=== PATIENT | female | born 1965 | race African-American/Black ===

== ENCOUNTER 2016-12-23 18:39 | Inpatient (IN) | payer BC, OTHER ==
[~2016-12-23] VITALS: Ht 160 cm; Wt 88.0 kg
[~2016-12-23 18:39] MED LIST: ESTR1.25 PO
[2016-12-23] MEDS ORDERED: IV NORMAL SALINE 1000ML BAG 1,000 ML IV SCH (19:00)
[2016-12-23] MEDS ORDERED: ASPIRIN CHEWABLE 81 MG TABLET. PO ONE (19:00)
[2016-12-23 19:33] LABS: BASO % 1 % (0-3); EOS % 2 % (0-3); HEMATOCRIT 37.2 % (36.0-47.0); LYMPH # 2.8 x10^3/uL (1.0-4.8); LYMPH % 34 % (24-48); MEAN CORPUSCULAR HEMOGLOBIN 27 pg (25-35); MEAN CORPUSCULAR HGB CONC 32 g/dL (31-37); MEAN CORPUSCULAR VOLUME 84 fL (79-100); MONO % 7 % (0-9); NEUT % 56 % (31-73); PLATELET COUNT 318 x10^3/uL (140-400); RED BLOOD COUNT 4.41 x10^6/uL (3.50-5.40); RED CELL DISTRIBUTION WIDTH 13.6 % (11.5-14.5); WHITE BLOOD COUNT 8.3 x10^3/uL (4.0-11.0)
[2016-12-23 19:45] LABS: CALCIUM 9.3 mg/dL (8.5-10.1); CREATININE 1.1 mg/dL (0.6-1.0); GFR 63.1; POTASSIUM 3.5 mmol/L (3.5-5.1)
[2016-12-23] MEDS ORDERED: CEPH-264 PO (19:49)
--- NOTE | 2016-12-23 19:50 | PHYS DOC ---
Past Medical History Past Medical History: Hypertension Past Surgical History: Hysterectomy Alcohol Use: None Drug Use: None Adult General Chief Complaint Chief Complaint: CHEST PAIN HPI HPI 51-year-old female with past history of tobacco abuse hypertension and high cholesterol no diabetes or family history of heart problems now presents to the emergency department complaining of intermittent chest pain over the last several days. The exertional chest pain associated with shortness of breath and diaphoresis. No nausea or vomiting. No productive cough or fever. Denies pleuritic pain. Pain is not worse with movement. 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 Review of Systems Review of Systems Constitutional: Denies fever or chills [] Eyes: Denies change in visual acuity, redness, or eye pain [] HENT: Denies nasal congestion or sore throat [] Respiratory: Denies cough or shortness of breath [] Cardiovascular: No additional information not addressed in HPI [] GI: Denies abdominal pain, nausea, vomiting, bloody stools or diarrhea [] : Denies dysuria or hematuria [] Musculoskeletal: Denies back pain or joint pain [] Integument: Denies rash or skin lesions [] Neurologic: Denies headache, focal weakness or sensory changes [] Endocrine: Denies polyuria or polydipsia [] Current Medications Current Medications Current Medications Medications (Trade) Dose Ordered Sig/Van Start Time Stop Time Status Last Admin Dose Admin Aspirin (Children'S Aspirin) 324 mg 1X ONCE 12/23/16 19:00 12/23/16 19:01 DC 12/23/16 19:15 324 MG Sodium Chloride 1,000 ml @ 100 mls/hr Q10H 12/23/16 19:00 12/24/16 04:59 12/23/16 19:30 100 MLS/HR Allergies Allergies Allergies Coded Allergies Type Severity Reaction Last Updated Verified No Known Drug Allergies 01/08/14 No Physical Exam Physical Exam Well appearing female no acute distress mild chest wall tenderness but clear lungs and regular rate and rhythm Constitutional: Well developed, well nourished, no acute distress, non-toxic appearance. [] HENT: Normocephalic, atraumatic, bilateral external ears normal, oropharynx moist, no oral exudates, nose normal. [] Eyes: PERRLA, EOMI, conjunctiva normal, no discharge. [] Neck: Normal range of motion, no tenderness, supple, no stridor. [] Cardiovascular:Heart rate regular rhythm, no murmur [] Lungs & Thorax: Bilateral breath sounds clear to auscultation [] Abdomen: Bowel sounds normal, soft, no tenderness, no masses, no pulsatile masses. [] Skin: Warm, dry, no erythema, no rash. [] Back: No tenderness, no CVA tenderness. [] Extremities: No tenderness, no cyanosis, no clubbing, ROM intact, no edema. [] Neurologic: Alert and oriented X 3, normal motor function, normal sensory function, no focal deficits noted. [] Psychologic: Affect normal, judgement normal, mood normal. [] Current Patient Data Vital Signs Vital Signs Date Time Temp Pulse Resp B/P (MAP) Pulse Ox O2 Delivery O2 Flow Rate FiO2 12/23/16 18:53 98.4 98 18 133/81 (98) 98 Room Air 98.4 Lab Values Laboratory Tests Test 12/23/16 19:20 White Blood Count 8.3 x10^3/uL (4.0-11.0) Red Blood Count 4.41 x10^6/uL (3.50-5.40) Hemoglobin 12.0 g/dL (12.0-15.5) Hematocrit 37.2 % (36.0-47.0) Mean Corpuscular Volume 84 fL (79-100) Mean Corpuscular Hemoglobin 27 pg (25-35) Mean Corpuscular Hemoglobin Concent 32 g/dL (31-37) Red Cell Distribution Width 13.6 % (11.5-14.5) Platelet Count 318 x10^3/uL (140-400) Neutrophils (%) (Auto) 56 % (31-73) Lymphocytes (%) (Auto) 34 % (24-48) Monocytes (%) (Auto) 7 % (0-9) Eosinophils (%) (Auto) 2 % (0-3) Basophils (%) (Auto) 1 % (0-3) Neutrophils # (Auto) 4.7 x10^3uL (1.8-7.7) Lymphocytes # (Auto) 2.8 x10^3/uL (1.0-4.8) Monocytes # (Auto) 0.6 x10^3/uL (0.0-1.1) Eosinophils # (Auto) 0.2 x10^3/uL (0.0-0.7) Basophils # (Auto) 0.0 x10^3/uL (0.0-0.2) Sodium Level 142 mmol/L (136-145) Potassium Level 3.5 mmol/L (3.5-5.1) Chloride Level 106 mmol/L (98-107) Carbon Dioxide Level 24 mmol/L (21-32) Anion Gap 12 (6-14) Blood Urea Nitrogen 10 mg/dL (7-20) Creatinine 1.1 mg/dL (0.6-1.0) H Estimated GFR (Cockcroft-Gault) 63.1 BUN/Creatinine Ratio 9 (6-20) Glucose Level 107 mg/dL (70-99) H Calcium Level 9.3 mg/dL (8.5-10.1) Total Bilirubin 0.4 mg/dL (0.2-1.0) Aspartate Amino Transferase (AST) 19 U/L (15-37) Alanine Aminotransferase (ALT) 19 U/L (14-59) Alkaline Phosphatase 89 U/L (46-116) Troponin I Quantitative < 0.017 ng/mL (0.000-0.055) Total Protein 8.4 g/dL (6.4-8.2) H Albumin 3.7 g/dL (3.4-5.0) Albumin/Globulin Ratio 0.8 (1.0-1.7) L Laboratory Tests 12/23/16 19:20 Laboratory Tests 12/23/16 19:20 EKG EKG EKG with normal sinus rhythm at 91 bpm left axis deviation. Left anterior hemiblock. No STEMI [] Radiology/Procedures Radiology/Procedures Chest x-ray no acute disease interpreted by me [] Course & Med Decision Making Course & Med Decision Making Pertinent Labs and Imaging studies reviewed. (See chart for details) Enzymes and symptoms consistent with chest pain of possible cardiac etiology in a patient with multiple cardiac risk factors. EKG and troponin unremarkable. Chest x-ray negative interpreted by me. Labs benign. Case discussed with Dr. galina Rodriguez hospitalist on-call was aware of history and findings and agrees with inpatient admission to his service for full cardiac workup. [] Dragon Disclaimer Dragon Disclaimer This electronic medical record was generated, in whole or in part, using a voice recognition dictation system. Departure Departure Impression: Primary Impression: Chest pain Disposition: 09 ADMITTED INPATIENT Admitting Physician: Navarro Masterson Condition: STABLE Referrals: JAMARCUS REYES MD (PCP) CECILLE QUEZADA MD Dec 23, 2016 19:50
[2016-12-23 19:51] LABS: ALBUMIN 3.7 g/dL (3.4-5.0); ALBUMIN/GLOBULIN RATIO 0.8 (1.0-1.7); TOTAL BILIRUBIN 0.4 mg/dL (0.2-1.0); TOTAL PROTEIN 8.4 g/dL (6.4-8.2)
--- NOTE | 2016-12-23 20:56 | PDOC1 ---
History and Physical History of Present Illness History of Present Illness Date of exam 12/23/2016 Chief complaint: Chest pain History of present illness: A 51-year-old -[place] female patient presented to the ER with complaints of chest pain located at the center of the chest sometimes radiated to right upper extremity and neck, symptoms are persistent for the last 2 weeks sometimes worse with the exertion especially when patient is taking stairs. She did have a stress test last year [facility] which was negative, however could not able to verify the report. She has been following with primary care doctor however she could not able to diagnose her condition. Patient denies any palpitations or syncope or lower extremity swellings. Past medical history hypertension, anxiety ,borderline diabetes mellitus, Social history: No smoking no, no drug abuse next Family history: Mother has heart disease. Current Problem List Problem List Problems Medical Problems: (1) Chest pain Status: Acute (2) Confusion Status: Acute (3) Dementia Status: Acute (4) UTI (urinary tract infection) Status: Acute Current Medications Current Medications Current Medications Medications (Trade) Dose Ordered Sig/Van Start Time Stop Time Status Last Admin Dose Admin Aspirin (Children'S Aspirin) 324 mg 1X ONCE 12/23/16 19:00 12/23/16 19:01 DC 12/23/16 19:15 324 MG Sodium Chloride 1,000 ml @ 100 mls/hr Q10H 12/23/16 19:00 12/24/16 04:59 12/23/16 19:30 100 MLS/HR Allergies Allergies Allergies Coded Allergies Type Severity Reaction Last Updated Verified No Known Drug Allergies 01/08/14 No ROS Review of System CONSTITUTIONAL: No fever or chills EYES: No recent changes SKIN: No rash or itching CARDIOVASCULAR: chest pain, no syncope, palpitations, or edema RESPIRATORY: No SOB or cough GASTROINTESTINAL: No nausea, vomiting or abdominal pain NEUROLOGICAL: No headaches or weakness ENDOCRINE: No cold or heat intolerance GENITOURINARY: No urgency or frequency of urination MUSCULOSKELETAL: No back pain or joint pain LYMPHATICS: No enlarged lymph nodes PSYCHIATRIC: No anxiety or depression Physical Exam Physical Exam GEN.: No apparent distress. Alert and oriented. HEENT: Head is normocephalic, atraumatic NECK: Supple. no jvd LUNGS: Clear to auscultation. HEART: RRR, S1, S2 present. Peripheral pulses intact ABDOMEN: Soft, nontender. Positive bowel sounds. EXTREMITIES: Without any cyanosis. NEUROLOGIC: Normal speech, normal tone PSYCHIATRIC: Normal affect, normal mood. SKIN: No ulcerations Vitals Vitals Vital Signs Date Time Temp Pulse Resp B/P (MAP) Pulse Ox O2 Delivery O2 Flow Rate FiO2 12/23/16 18:53 98.4 98 18 133/81 (98) 98 Room Air 98.4 Labs Labs Laboratory Tests Test 12/23/16 19:20 White Blood Count 8.3 x10^3/uL (4.0-11.0) Red Blood Count 4.41 x10^6/uL (3.50-5.40) Hemoglobin 12.0 g/dL (12.0-15.5) Hematocrit 37.2 % (36.0-47.0) Mean Corpuscular Volume 84 fL (79-100) Mean Corpuscular Hemoglobin 27 pg (25-35) Mean Corpuscular Hemoglobin Concent 32 g/dL (31-37) Red Cell Distribution Width 13.6 % (11.5-14.5) Platelet Count 318 x10^3/uL (140-400) Neutrophils (%) (Auto) 56 % (31-73) Lymphocytes (%) (Auto) 34 % (24-48) Monocytes (%) (Auto) 7 % (0-9) Eosinophils (%) (Auto) 2 % (0-3) Basophils (%) (Auto) 1 % (0-3) Neutrophils # (Auto) 4.7 x10^3uL (1.8-7.7) Lymphocytes # (Auto) 2.8 x10^3/uL (1.0-4.8) Monocytes # (Auto) 0.6 x10^3/uL (0.0-1.1) Eosinophils # (Auto) 0.2 x10^3/uL (0.0-0.7) Basophils # (Auto) 0.0 x10^3/uL (0.0-0.2) Sodium Level 142 mmol/L (136-145) Potassium Level 3.5 mmol/L (3.5-5.1) Chloride Level 106 mmol/L (98-107) Carbon Dioxide Level 24 mmol/L (21-32) Anion Gap 12 (6-14) Blood Urea Nitrogen 10 mg/dL (7-20) Creatinine 1.1 mg/dL (0.6-1.0) Estimated GFR (Cockcroft-Gault) 63.1 BUN/Creatinine Ratio 9 (6-20) Glucose Level 107 mg/dL (70-99) Calcium Level 9.3 mg/dL (8.5-10.1) Total Bilirubin 0.4 mg/dL (0.2-1.0) Aspartate Amino Transf (AST/SGOT) 19 U/L (15-37) Alanine Aminotransferase (ALT/SGPT) 19 U/L (14-59) Alkaline Phosphatase 89 U/L (46-116) Troponin I Quantitative < 0.017 ng/mL (0.000-0.055) Total Protein 8.4 g/dL (6.4-8.2) Albumin 3.7 g/dL (3.4-5.0) Albumin/Globulin Ratio 0.8 (1.0-1.7) Laboratory Tests Test 12/23/16 19:20 White Blood Count 8.3 x10^3/uL (4.0-11.0) Red Blood Count 4.41 x10^6/uL (3.50-5.40) Hemoglobin 12.0 g/dL (12.0-15.5) Hematocrit 37.2 % (36.0-47.0) Mean Corpuscular Volume 84 fL (79-100) Mean Corpuscular Hemoglobin 27 pg (25-35) Mean Corpuscular Hemoglobin Concent 32 g/dL (31-37) Red Cell Distribution Width 13.6 % (11.5-14.5) Platelet Count 318 x10^3/uL (140-400) Neutrophils (%) (Auto) 56 % (31-73) Lymphocytes (%) (Auto) 34 % (24-48) Monocytes (%) (Auto) 7 % (0-9) Eosinophils (%) (Auto) 2 % (0-3) Basophils (%) (Auto) 1 % (0-3) Neutrophils # (Auto) 4.7 x10^3uL (1.8-7.7) Lymphocytes # (Auto) 2.8 x10^3/uL (1.0-4.8) Monocytes # (Auto) 0.6 x10^3/uL (0.0-1.1) Eosinophils # (Auto) 0.2 x10^3/uL (0.0-0.7) Basophils # (Auto) 0.0 x10^3/uL (0.0-0.2) Sodium Level 142 mmol/L (136-145) Potassium Level 3.5 mmol/L (3.5-5.1) Chloride Level 106 mmol/L (98-107) Carbon Dioxide Level 24 mmol/L (21-32) Anion Gap 12 (6-14) Blood Urea Nitrogen 10 mg/dL (7-20) Creatinine 1.1 mg/dL (0.6-1.0) Estimated GFR (Cockcroft-Gault) 63.1 BUN/Creatinine Ratio 9 (6-20) Glucose Level 107 mg/dL (70-99) Calcium Level 9.3 mg/dL (8.5-10.1) Total Bilirubin 0.4 mg/dL (0.2-1.0) Aspartate Amino Transf (AST/SGOT) 19 U/L (15-37) Alanine Aminotransferase (ALT/SGPT) 19 U/L (14-59) Alkaline Phosphatase 89 U/L (46-116) Troponin I Quantitative < 0.017 ng/mL (0.000-0.055) Total Protein 8.4 g/dL (6.4-8.2) Albumin 3.7 g/dL (3.4-5.0) Albumin/Globulin Ratio 0.8 (1.0-1.7) VTE Prophylaxis Ordered VTE Prophylaxis Devices: Yes VTE Pharmacological Prophylaxi: Yes Assessment/Plan Assessment/Plan Chest pain: Possible differentials musculoskeletal, coronary artery related, anxiety. EKG reviewed compared with old EKG no acute ST-T wave changes noted, I' ll get an echocardiogram, consult cardiology, order 2 more sets of troponins, patient could not able to verify her home medications. Hypertension: Verify home medications with pharmacy and resume , intravenous hydralazine hydralazine as needed, Obesity: Anxiety: PRN Xana. MIYA SWEET MD Dec 23, 2016 20:55
[2016-12-23] MEDS ORDERED: ALBUTEROL SULFATE 2.5 MG/3 ML NEBU. NEB PRN (21:15)
[2016-12-23] MEDS ORDERED: ACETAMINOPHEN 325 MG TABLET. PO PRN (21:15)
[2016-12-23] MEDS ORDERED: ONDANSETRON PF 4 MG/2 ML VIAL. IV PRN (21:15)
[2016-12-23] MEDS ORDERED: hydrALAZINE 20 MG/ML VIAL. IVP PRN (21:15)
[2016-12-23] MEDS ORDERED: HYDROcodone/APAP 5/325MG 1 TAB TABLET PO PRN (21:15)
[2016-12-23 23:00] VITALS: BP 105/58
[2016-12-24] MEDS ORDERED: ASPI-482 PO (00:24)
[2016-12-24] MEDS ORDERED: AMIT25TA PO (00:24)
[2016-12-24] MEDS ORDERED: LOSA100T6 PO (00:24)
[2016-12-24] MEDS ORDERED: SIMV20TA PO (00:24)
[2016-12-24] MEDS ORDERED: AMLO5TAB2 PO (00:24)
[2016-12-24] MEDS ORDERED: CHOL500016 PO (00:24)
[2016-12-24] MEDS ORDERED: ALPR0.5T PO (00:24)
[2016-12-24] MEDS ORDERED: DULO30CA2 PO (00:24)
[2016-12-24] MEDS ORDERED: VALR1TAB PO (00:24)
[2016-12-24] MEDS ORDERED: ALPRAZolam 0.5 MG TABLET PO PRN (00:30)
[2016-12-24 03:00] VITALS: BP 110/63
[2016-12-24 07:00] VITALS: BP 106/57
[2016-12-24 07:11] LABS: BASO % 1 % (0-3); EOS % 3 % (0-3); HEMATOCRIT 32.2 % (36.0-47.0); HEMOGLOBIN 10.5 g/dL (12.0-15.5); LYMPH % 35 % (24-48); MEAN CORPUSCULAR HEMOGLOBIN 27 pg (25-35); MEAN CORPUSCULAR HGB CONC 33 g/dL (31-37); MEAN CORPUSCULAR VOLUME 84 fL (79-100); MONO % 10 % (0-9); NEUT % 52 % (31-73); PLATELET COUNT 278 x10^3/uL (140-400); RED BLOOD COUNT 3.82 x10^6/uL (3.50-5.40); RED CELL DISTRIBUTION WIDTH 13.6 % (11.5-14.5); WHITE BLOOD COUNT 5.8 x10^3/uL (4.0-11.0)
[2016-12-24 07:32] LABS: CALCIUM 8.6 mg/dL (8.5-10.1); GFR 70.5; POTASSIUM 3.7 mmol/L (3.5-5.1)
--- NOTE | 2016-12-24 08:47 | RAD ---
EXAM: CHEST 1 VIEW History: Right-sided chest pain for one week COMPARISON: 07/28/2006 TECHNIQUE: Single portable radiograph of the chest FINDINGS: The cardiac silhouette is unremarkable. The lungs are clear bilaterally. The costophrenic sulci are clear and well demarcated. IMPRESSION: No radiographic evidence of an acute cardiopulmonary process.
[2016-12-24] MEDS ORDERED: ERGOCALCIFEROL (VITAMIN D2) 50,000 UNIT CAPSULE. PO SCH (09:00)
[2016-12-24] MEDS ORDERED: DULoxetine HCL 30 MG CAPSULE.DR PO SCH (09:00)
[2016-12-24] MEDS ORDERED: amLODIPine BESYLATE 5 MG TABLET PO SCH (09:00)
[2016-12-24] MEDS ORDERED: ASPIRIN ENTERIC COATED 81 MG TABLET.DR. PO SCH (09:00)
[2016-12-24] MEDS ORDERED: LOSARTAN POTASSIUM 50 MG TABLET. PO SCH (09:00)
--- NOTE | 2016-12-24 09:06 | PDOC2 ---
CARDIOLOGY CONSULT NOTE CHEIF COMPLAINT: Chest pain Problems: HPI: 51 y.o woman presenting to the hospital with chest pain Started after an argument with her . Pain was intermittent and then improved without any interventions. Reports similar pains last year and had a negative stress through [employer] Denies any current chest pain but has chronic exertional dyspnea related to obesity. No syncope, palpitations. In ER noted to have negative trop admitted for acs rule out. PMHX: HTN ANXIETY DEPRESSION DYSLIPIDEMIA SOCHX: +tobacco abuse. . FAMHX: +CAD CURRENT MEDS: Current Medications Medications (Trade) Dose Ordered Sig/Van Start Time Stop Time Status Last Admin Dose Admin Acetaminophen (Tylenol) 325 mg PRN Q6HRS PRN 12/23/16 21:15 Acetaminophen/ Hydrocodone Bitart (Lortab 5/325) 1 tab PRN Q6HRS PRN 12/23/16 21:15 12/23/16 23:11 1 TAB Albuterol Sulfate (Ventolin Neb Soln) 2.5 mg PRN Q4HRS PRN 12/23/16 21:15 Alprazolam (Xanax) 0.5 mg PRN DAILY PRN 12/24/16 00:30 Amitriptyline HCl (Elavil) 25 mg HS 12/24/16 21:00 Amlodipine Besylate (Norvasc) 5 mg DAILY 12/24/16 09:00 Aspirin (Children'S Aspirin) 324 mg 1X ONCE 12/23/16 19:00 12/23/16 19:01 DC 12/23/16 19:15 324 MG Aspirin (Ecotrin) 81 mg DAILY 12/24/16 09:00 Atorvastatin Calcium (Lipitor) 10 mg QHS 12/24/16 21:00 Duloxetine HCl (Cymbalta) 30 mg BID 12/24/16 09:00 Ergocalciferol (Vitamin D2) 50,000 unit WEEKLY 12/24/16 09:00 Hydralazine HCl (Apresoline) 10 mg PRN Q4HRS PRN 12/23/16 21:15 Losartan Potassium (Cozaar) 100 mg DAILY 12/24/16 09:00 Non-Formulary Medication 1 each HS 12/24/16 21:00 UNV Ondansetron HCl (Zofran) 4 mg PRN Q8HRS PRN 12/23/16 21:15 Sodium Chloride 1,000 ml @ 100 mls/hr Q10H 12/23/16 19:00 12/24/16 04:59 DC 12/23/16 19:30 100 MLS/HR ALLERGIES: Allergies Coded Allergies Type Severity Reaction Last Updated Verified No Known Drug Allergies 01/08/14 No ROS: 14 point system was reviewed and is negative other then described in HPI and past medical and surgical history. PHYSICAL EXAM: Vital Signs: Vital Signs Date Time Temp Pulse Resp B/P (MAP) Pulse Ox O2 Delivery O2 Flow Rate FiO2 12/24/16 07:50 99 Room Air 12/24/16 07:00 95.5 52 18 106/57 (73) 95.5 I & O Intake and Output 12/24/16 07:00 Intake Total 1180 ml Balance 1180 ml Intake Oral 280 ml IV Total 900 ml Physical Exam: GEN.: No apparent distress. Alert and oriented. HEENT: Head is normocephalic, atraumatic NECK: Supple. LUNGS: Clear to auscultation. HEART: RRR, S1, S2 present. Peripheral pulses intact ABDOMEN: Soft, nontender. Positive bowel sounds. EXTREMITIES: Without any cyanosis. NEUROLOGIC: Normal speech, normal tone PSYCHIATRIC: Normal affect, normal mood. SKIN: No ulcerations DIAGNOSTIC TESTING: EKG unremarkable CXR unremarkable CE neg x 2. Lab Laboratory Tests Test 12/23/16 19:20 12/24/16 06:40 White Blood Count 8.3 x10^3/uL (4.0-11.0) 5.8 x10^3/uL (4.0-11.0) Red Blood Count 4.41 x10^6/uL (3.50-5.40) 3.82 x10^6/uL (3.50-5.40) Hemoglobin 12.0 g/dL (12.0-15.5) 10.5 g/dL (12.0-15.5) L Hematocrit 37.2 % (36.0-47.0) 32.2 % (36.0-47.0) L Mean Corpuscular Volume 84 fL (79-100) 84 fL (79-100) Mean Corpuscular Hemoglobin 27 pg (25-35) 27 pg (25-35) Mean Corpuscular Hemoglobin Concent 32 g/dL (31-37) 33 g/dL (31-37) Red Cell Distribution Width 13.6 % (11.5-14.5) 13.6 % (11.5-14.5) Platelet Count 318 x10^3/uL (140-400) 278 x10^3/uL (140-400) Neutrophils (%) (Auto) 56 % (31-73) 52 % (31-73) Lymphocytes (%) (Auto) 34 % (24-48) 35 % (24-48) Monocytes (%) (Auto) 7 % (0-9) 10 % (0-9) H Eosinophils (%) (Auto) 2 % (0-3) 3 % (0-3) Basophils (%) (Auto) 1 % (0-3) 1 % (0-3) Neutrophils # (Auto) 4.7 x10^3uL (1.8-7.7) 3.0 x10^3uL (1.8-7.7) Lymphocytes # (Auto) 2.8 x10^3/uL (1.0-4.8) 2.0 x10^3/uL (1.0-4.8) Monocytes # (Auto) 0.6 x10^3/uL (0.0-1.1) 0.6 x10^3/uL (0.0-1.1) Eosinophils # (Auto) 0.2 x10^3/uL (0.0-0.7) 0.2 x10^3/uL (0.0-0.7) Basophils # (Auto) 0.0 x10^3/uL (0.0-0.2) 0.0 x10^3/uL (0.0-0.2) Sodium Level 142 mmol/L (136-145) 146 mmol/L (136-145) H Potassium Level 3.5 mmol/L (3.5-5.1) 3.7 mmol/L (3.5-5.1) Chloride Level 106 mmol/L (98-107) 112 mmol/L (98-107) H Carbon Dioxide Level 24 mmol/L (21-32) 24 mmol/L (21-32) Anion Gap 12 (6-14) 10 (6-14) Blood Urea Nitrogen 10 mg/dL (7-20) 11 mg/dL (7-20) Creatinine 1.1 mg/dL (0.6-1.0) H 1.0 mg/dL (0.6-1.0) Estimated GFR (Cockcroft-Gault) 63.1 70.5 BUN/Creatinine Ratio 9 (6-20) Glucose Level 107 mg/dL (70-99) H 115 mg/dL (70-99) H Calcium Level 9.3 mg/dL (8.5-10.1) 8.6 mg/dL (8.5-10.1) Total Bilirubin 0.4 mg/dL (0.2-1.0) Aspartate Amino Transf (AST/SGOT) 19 U/L (15-37) Alkaline Phosphatase 89 U/L (46-116) Total Protein 8.4 g/dL (6.4-8.2) H Albumin 3.7 g/dL (3.4-5.0) Albumin/Globulin Ratio 0.8 (1.0-1.7) L ASSESSMENT: 1. Non-cardiac chest pain - possible anxiety 2. Obesity, 3. HTN 4 Medication non-compliance 5 Dyslipidemia. PLAN: 1. Negative EKG/Tele Negative enzymes. Currently chest pain free 2. Discussed importance of smoking cessation and reviewed cardiac meds. Ok to DC. If persistent symptoms, consider outpt stress. No need for echo or stress at this time. Thanks for consult. JORDI SWAIN MD Dec 24, 2016 09:06
[2016-12-24 10:31] VITALS: BP 106/64
--- NOTE | 2016-12-24 10:52 | PDOC3 ---
Discharge Summary* Date of Discharge: Dec 24, 2016 Admitting Diagnosis 1. Non-cardiac chest pain - possible anxiety 2. Obesity, 3. HTN 4 Medication non-compliance 5 Dyslipidemia. Brief hospital course: A 51-year-old female patient with prior history of nicotine use and hypertension and noncompliance presented to the ER with complaints of chest pain atypical in nature 3 sets of troponins were negative and EKG did not show any acute ST-T wave changes patient has been evaluated by cardiology, however patient declined to have a stress test in the hospital now she changes her mind to have a stress test as an outpatient basis. Cardiology information has been provided to the patient and she needs to call them on Monday for scheduled stress test. Physical exam Gen. an alert oriented 3 Lungs anterior chest clear Heart S1 and S2 present. Peripheral pulses intact in all extremities Extremities no edema. Total time spent for discharge 32 minutes for patient education counseling and coordination of care. Discharge disposition stable Discharge follow-up: With primary care doctor and/or cardiology. Problems: Final Diagnosis Problems Medical Problems: (1) Chest pain Status: Acute (2) Confusion Status: Acute (3) Dementia Status: Acute (4) UTI (urinary tract infection) Status: Acute Brief Hospital Course Ms. Christensen is a 51 old [sex] who presented with [ ] Scheduled Amitriptyline Hcl (Amitriptyline Hcl), 25 MG PO HS, (Reported) Amlodipine Besylate (Amlodipine Besylate), 5 MG PO DAILY, (Reported) Aspirin (Aspir 81), 1 TAB PO DAILY, (Reported) Cholecalciferol (Vitamin D3) (Vitamin D3), 50,000 UNIT PO WEEKLY, (Reported) Losartan Potassium (Losartan Potassium), 100 MG PO DAILY, (Reported) Simvastatin (Zocor), 20 MG PO HS, (Reported) Valrn/Pasn/Celry/Catnp/Hop/Orn (Relax & Sleep Tablet), 1 EACH PO HS, (Reported) Scheduled PRN Alprazolam (Xanax), 0.5 MG PO PRN DAILY PRN for ANXIETY / AGITATION, (Reported) Time Spent Total time spent with patient [] minutes for coordination of care, counseling, and education. MIYA SWEET MD Dec 24, 2016 10:52
--- NOTE | 2016-12-24 11:35 | EKG ---
[facility] [address] [place] [address] Test Date: 2016-12-23 Test Time: 18:49:16 Pat Name: SHANE MARC Department: Room: Gender: F [employer]: : [id number] Requested By: CECILLE QUEZADA Order Number: [id number] Reading MD: Measurements Intervals [place] Rate: 91 P: 46 WV: 170 QRS: -39 QRSD: 88 T: 9 QT: 364 QTc: 449 Interpretive Statements SINUS RHYTHM ABNORMAL LEFT AXIS DEVIATION LEFT ANTERIOR FASCICULAR BLOCK QRS(T) CONTOUR ABNORMALITY CONSIDER ANTEROSEPTAL MYOCARDIAL DAMAGE RI6.01 Unconfirmed report No previous ECG available for comparison
[2016-12-24] MEDS ORDERED: ATORVASTATIN CALCIUM 10 MG TABLET. PO SCH (21:00)
[2016-12-24] MEDS ORDERED: [UNRECOGNIZED DRUG - MIXTURE] PO SCH (21:00)
[2016-12-24] MEDS ORDERED: AMITRIPTYLINE HCL 25 MG TABLET. PO SCH (21:00)
== END 2016-12-24 12:10 | disposition home or self-care (01) | DRG 880 ==
LOC: ER 18:39 → 5 NORTH 20:19
PROVIDERS: ADMIT Internal Medicine; ATTEND Internal Medicine
DX: F41.9 Anxiety disorder, unspecified (principal); E66.9 Obesity, unspecified; E78.5 Hyperlipidemia, unspecified; F03.90 Unspecified dementia, unspecified severity, without behavioral disturbance, psychotic disturbance, mood disturbance, and anxiety; F32.9 Major depressive disorder, single episode, unspecified; I10 Essential (primary) hypertension; R06.09 Other forms of dyspnea; R07.89 Other chest pain; R41.0 Disorientation, unspecified; Z90.710 Acquired absence of both cervix and uterus; Z91.14 Patient's other noncompliance with medication regimen; Z68.34 Body mass index [BMI] 34.0-34.9, adult; Z82.49 Family history of ischemic heart disease and other diseases of the circulatory system; Z71.6 Tobacco abuse counseling; Z87.891 Personal history of nicotine dependence
CPT/HCPCS: 36415; 71010; 80048; 80053; 84484; 85027; 93005; 94250; 94760; 96360; 96361; J7030; 99285-25

== ENCOUNTER 2018-05-01 01:52 | Emergency (ER) | payer SELFPAY ==
[~2018-05-01] VITALS: Ht 162.6 cm; Wt 88.0 kg
[~2018-05-01 01:52] MED LIST changes: +ALPR0.5T PO; +AMIT25TA PO; +AMLO5TAB7 PO; +ASPI-482 PO; +CEPH-264 PO; +CHOL500016 PO; +DULO30CA2 PO; +LOSA100T7 PO; +SIMV20TA PO; +VALR1TAB PO
[2018-05-01] MEDS ORDERED: MORPHINE SULFATE 4 MG/ML VIAL. IV ONE (02:30)
[2018-05-01] MEDS ORDERED: KETOROLAC 15 MG/ML VIAL. IV ONE (02:30)
--- NOTE | 2018-05-01 02:30 | PHYS DOC ---
Past Medical History Past Medical History: High Cholesterol, Hypertension Past Surgical History: Hysterectomy Alcohol Use: None Drug Use: None Adult General Chief Complaint Chief Complaint: ANKLE PROBLEM HPI HPI Patient is a 52 year old female who presents with right ankle pain and swelling. This happened approximately 40 minutes prior to arrival. Patient was walking down the steps to her basement, slipped, and fell down 3 steps. Increased pain with movement and weightbearing. Patient has not weight-bear due to pain since this happened. Patient is taking no pain medicine. Patient denies other injuries from the fall. Denies any loss of consciousness or syncope. Denies any numbness, tingling or paresthesias. Reports that the pain is moderate to severe in intensity.[] Review of Systems Review of Systems Constitutional: Denies fever or chills [] Eyes: Denies change in visual acuity, redness, or eye pain [] HENT: Denies nasal congestion or sore throat [] Respiratory: Denies cough or shortness of breath [] Cardiovascular: No chest pain or palpitations[] GI: Denies abdominal pain, nausea, vomiting, bloody stools or diarrhea [] : Denies dysuria or hematuria [] Musculoskeletal: Denies back pain, see history of present illness[] Integument: Denies rash or skin lesions [] Neurologic: Denies headache, focal weakness or sensory changes [] Endocrine: Denies polyuria or polydipsia [] All other systems were reviewed and found to be within normal limits, except as documented in this note. Current Medications Current Medications Current Medications Medications (Trade) Dose Ordered Sig/Van Start Time Stop Time Status Last Admin Dose Admin Ketorolac Tromethamine (Toradol 15mg Vial) 15 mg 1X ONCE 05/01/18 02:30 05/01/18 02:31 DC Morphine Sulfate (Morphine Sulfate) 4 mg 1X ONCE 05/01/18 02:30 05/01/18 02:31 DC Allergies Allergies Allergies Coded Allergies Type Severity Reaction Last Updated Verified No Known Drug Allergies 01/08/14 No Physical Exam Physical Exam Constitutional: Well developed, well nourished, moderate distress, non-toxic appearance. [] HENT: Normocephalic, atraumatic, bilateral external ears normal, oropharynx moist, no oral exudates, nose normal. [] Eyes: PERRLA, EOMI, conjunctiva normal, no discharge. [] Neck: Normal range of motion, no tenderness, supple, no stridor. [] Cardiovascular:Heart rate regular rhythm, no murmur [] Lungs & Thorax: Bilateral breath sounds clear to auscultation [] Abdomen: Bowel sounds normal, soft, no tenderness, no masses, no pulsatile masses. [] Skin: Warm, dry, no erythema, no rash. [] Back: No tenderness, no CVA tenderness. [] Extremities: Tenderness and swelling right ankle with tenderness over both medial and lateral malleolus. No tenderness palpation over the base of fifth metatarsal. Patient is distal neurovascularly intact, no cyanosis, no clubbing, ROM limited secondary to pain, no edema. [] Neurologic: Alert and oriented X 3, normal motor function, normal sensory function, no focal deficits noted. [] Psychologic: Affect normal, judgement normal, mood normal. [] Current Patient Data Vital Signs Vital Signs Date Time Temp Pulse Resp B/P (MAP) Pulse Ox O2 Delivery O2 Flow Rate FiO2 05/01/18 01:58 98.8 67 20 141/64 (89) 100 Room Air 98.8 EKG EKG [] Radiology/Procedures Radiology/Procedures Medial malleolus fracture of the left ankle[] Course & Med Decision Making Course & Med Decision Making Pertinent Labs and Imaging studies reviewed. (See chart for details) ED course: Patient arrived, was placed in bed, in tolerated exam well. Patient had pain medication administered. Patient tolerated the x-ray without any complications. After the return of the x-ray findings discussion was made with patient and her regarding those. Splint was applied. Patient was distal neurovascularly intact after the splint was applied. Patient was discharged in improved condition. Medical decision making: There does not appear to be an open fracture nor significantly displaced fracture. No evidence of maisonneuve fracture. No evidence of neuro or vascular compromise.[] Dragon Disclaimer Dragon Disclaimer This electronic medical record was generated, in whole or in part, using a voice recognition dictation system. Departure Departure Impression: Primary Impression: Closed right ankle fracture Disposition: 01 HOME, SELF-CARE Condition: GOOD Referrals: JAMARCUS REYES MD (PCP) TIANA DECKER MD Call in the morning to set up an appointment within the next 3 days Patient Instructions: Ankle Fracture, Cast or Splint Care, Crutch Use Additional Instructions: Called Dr. Decker - the orthopedic surgeon - in the morning to be seen in the next 3 days. No weightbearing with your right foot/ankle. Use the crutches as directed. Keep the splint clean and dry. Return to the ER if worsening pain or any other concerns Scripts Hydrocodone/Apap 5-325 (NORCO 5-325 TABLET) 1 Each Tablet 1-2 EACH PO PRN Q6HRS PRN for PAIN, #15 as needed for pain Prov: CHAS JIMÉNEZ DO 05/01/18 Meloxicam (MELOXICAM) 7.5 Mg Tablet 7.5 MG PO DAILY, #20 TAB Prov: CHAS JIMÉNEZ DO 05/01/18 Problem Qualifiers Primary Impression: Closed right ankle fracture Encounter type: initial encounter Qualified Codes: S82.891A - Other fracture of right lower leg, initial encounter for closed fracture CHAS JIMÉNEZ DO May 01, 2018 02:30
[2018-05-01] MEDS ORDERED: HYDR-3164 PO (02:49)
[2018-05-01] MEDS ORDERED: MELO7.5T29 PO (02:49)
[2018-05-01] MEDS ORDERED: KETOROLAC 15 MG/ML VIAL. IM ONE ×2 (03:00→03:30)
[2018-05-01] MEDS ORDERED: MORPHINE SULFATE 4 MG/ML VIAL. IM ONE (03:30)
[2018-05-01 03:56] VITALS: BP 138/84
--- NOTE | 2018-05-01 08:00 | RAD ---
Examination: ANKLE RIGHT 3V History: ANKLE PAIN AFTER INJURY Comparison/Correlation: None Findings: Total 3 images of the right ankle were obtained. Marked soft tissue swelling about the ankle is present especially anterolaterally. Medial malleolar fracture which extends intra-articularly is present. A comminuted fracture fragment along the medial aspect of the medial malleolus is slightly displaced. Mild soft tissue swelling. Ankle joint mortise otherwise is unremarkable. Very small calcaneal spur is present. Impression: Medial malleolar fracture with intra-articular extension. Slightly displaced fracture fragment along the medial margin of the medial malleolus. Marked soft tissue swelling. Electronically signed by: Asad Hendricks MD (05/01/2018 7:57 AM) [facility]
== END 2018-05-01 03:59 | disposition home or self-care (01) ==
LOC: ER 01:52
DX: S82.891A Other fracture of right lower leg, initial encounter for closed fracture (principal); E78.00 Pure hypercholesterolemia, unspecified; I10 Essential (primary) hypertension; W10.8XXA Fall (on) (from) other stairs and steps, initial encounter; Y93.01 Activity, walking, marching and hiking; Y92.89 Other specified places as the place of occurrence of the external cause; Y99.8 Other external cause status
CPT/HCPCS: 29515; 73610; 96372; 99284; J1885; J2270

== ENCOUNTER 2018-05-01 11:59 | Emergency (ER) | payer SELFPAY ==
[~2018-05-01] VITALS: Ht 160 cm; Wt 88.0 kg
[~2018-05-01 11:59] MED LIST changes: +HYDR-3164 PO; +MELO7.5T29 PO
[2018-05-01 12:18] VITALS: BP 138/84
--- NOTE | 2018-05-01 12:42 | PHYS DOC ---
Past Medical History Past Medical History: High Cholesterol, Hypertension Past Surgical History: Hysterectomy Alcohol Use: None Drug Use: None Adult General Chief Complaint Chief Complaint: OTHER COMPLAINTS HPI HPI Patient is a 52 year old female who presents today for a splinting of the right ankle. Patient states she was seen in the ED yesterday was diagnosed with right ankle fracture, she states she was put in a splint unfortunately she is a deep sleeper, she states the splint came loose during her sleep and she tried to re-splint herself, she states the whole splint came out in the process. Patient states she has an appointment with orthopedic doctor on . Review of Systems Review of Systems Constitutional: Denies fever or chills [] Musculoskeletal: visit for splint application Integument: Denies rash or skin lesions [] Neurologic: Denies headache, focal weakness or sensory changes [] All other systems were reviewed and found to be within normal limits, except as documented in this note. Allergies Allergies Allergies Coded Allergies Type Severity Reaction Last Updated Verified No Known Drug Allergies 01/08/14 No Physical Exam Physical Exam Constitutional: Well developed, well nourished, no acute distress, non-toxic appearance. [] Skin: Warm, dry, no erythema, no rash. [] Back: No tenderness, no CVA tenderness. [] Extremities: Right lateral ankle with mild soft tissue swelling. Tenderness on palpation of the right lateral ankle. Full range of motion to the right toes, slightly Limited range of motion to the right ankle due to pain. +2 light pedal pulse. Cap refill less than 2 seconds the right toes. Neurologic: Alert and oriented X 3, normal motor function, normal sensory function, no focal deficits noted. [] Psychologic: Affect normal, judgement normal, mood normal. [] Current Patient Data Vital Signs Vital Signs Date Time Temp Pulse Resp B/P (MAP) Pulse Ox O2 Delivery O2 Flow Rate FiO2 05/01/18 12:18 98.7 18 138/84 (102) 98 Room Air 98.7 EKG EKG [] Radiology/Procedures Radiology/Procedures [] Course & Med Decision Making Course & Med Decision Making Pertinent Labs and Imaging studies reviewed. (See chart for details) This is a 52-year-old female patient who presents to the ED today to be resplinted, she was diagnosed with right ankle fracture yesterday, unfortunately she somehow removed/lost the splint in her sleep. Patient was placed in a posterior leg splint in the ED by the senior nuclear medicine technologist, neurovascular exam done by me is intact. Ice elevation encouraged. She has an appointment with orthopedic doctor on this week. Dragon Disclaimer Dragon Disclaimer This electronic medical record was generated, in whole or in part, using a voice recognition dictation system. Departure Departure Impression: Primary Impression: Aftercare for cast or splint check or change Additional Impression: Ankle fracture, right Disposition: HOME, SELF-CARE Condition: STABLE Referrals: JAMARCUS REYES MD (PCP) Follow up with the orthopedic doctor on as scheduled Patient Instructions: Ankle Fracture, Cast or Splint Care, [id number] Additional Instructions: You were re-splinted in the emergency room. Continue to ice and elevate the extremity. Please follow-up with orthopedic doctor on as scheduled. Problem Qualifiers Additional Impression: Ankle fracture, right Encounter type: subsequent encounter Fracture type: closed LYNDA OLIVAREZ DIRECTOR TALENT MANAGEMENT May 01, 2018 12:42
== END 2018-05-01 12:58 | disposition home or self-care (01) ==
LOC: ER 11:59
DX: S82.891A Other fracture of right lower leg, initial encounter for closed fracture (principal); I10 Essential (primary) hypertension; E78.00 Pure hypercholesterolemia, unspecified; X58.XXXA Exposure to other specified factors, initial encounter; Y93.89 Activity, other specified; Y92.89 Other specified places as the place of occurrence of the external cause; Y99.8 Other external cause status
CPT/HCPCS: 29515; 99284-25

== ENCOUNTER 2019-08-05 18:26 | Emergency (ER) | payer SELFPAY ==
[~2019-08-05] VITALS: Ht 160 cm; Wt 72.7 kg
[~2019-08-05 18:26] MED LIST changes: +AMLO5TAB10 PO; -AMLO5TAB7 PO; +LOSA100T14 PO; -LOSA100T7 PO
[2019-08-05 19:41] VITALS: BP 151/92
--- NOTE | 2019-08-05 21:30 | PHYS DOC ---
Past Medical History Past Medical History: High Cholesterol, Hypertension Past Surgical History: Hysterectomy Smoking Status: Current Every Day Smoker Alcohol Use: None Drug Use: None Adult General Chief Complaint Chief Complaint: FOOT INJURY PAIN HPI HPI Patient is a 54 year old AA female who presents to the ER today with complaints of increased pain in her R foot/ankle for the last 2 days. PT states she has chronic pain in the same area ever since she fractured her foot a year ago. Pt denies any new injury or twisting of the affected extremity. SHe denies any fever, redness, warmth, or increased swelling of the area. She states that the ankle has been swollen since the initial injury. She currently rates the pain a 7/10 on the pain scale, she denies any alleviating factors. PT states she has tried ice, elevation, and tylenol with no relief. Review of Systems Review of Systems All other systems were reviewed and found to be within normal limits, except as documented in this note. Allergies Allergies Allergies Coded Allergies Type Severity Reaction Last Updated Verified No Known Drug Allergies 01/08/14 No Physical Exam Physical Exam Constitutional: Well developed, well nourished, no acute distress, non-toxic appearance. [] HENT: Normocephalic, atraumatic, bilateral external ears normal, , nose normal. [] Eyes: PERRLA, EOMI, conjunctiva normal, no discharge. [] Neck: Normal range of motion, no stridor. [] Cardiovascular:Heart rate regular rhythm Lungs & Thorax: respirations even and unlabored, no retractions Skin: Warm, dry, no erythema, no rash. [] Extremities: LLE: no erythema, no obvious deformity, no crepitus, non-specific T TP, no cyanosis, no clubbing, ROM intact, 1+edema, PMS normal, pt ambulates with steady gait [] Neurologic: Alert and oriented X 3, no focal deficits noted. [] Psychologic: Affect normal, judgement normal, mood normal. [] Current Patient Data Vital Signs Vital Signs Date Time Temp Pulse Resp B/P (MAP) Pulse Ox O2 Delivery O2 Flow Rate FiO2 08/05/19 19:41 98.0 85 16 151/92 (111) 99 Room Air 98.0 EKG EKG [] Radiology/Procedures Radiology/Procedures [] Course & Med Decision Making Course & Med Decision Making Pertinent Labs and Imaging studies reviewed. (See chart for details) Medical screening exam was completed and the patient was found to have no medical emergency. POC would've included an Jose Manuel Wrap, RICE instruction, and orthopedic referral but patient eloped after speaking with registration. [] Dragon Disclaimer Dragon Disclaimer This electronic medical record was generated, in whole or in part, using a voice recognition dictation system. Departure Departure Impression: Primary Impression: Encounter for medical screening examination Disposition: HOME, SELF-CARE (pt eloped after speaking with registration) Condition: STABLE Referrals: JAMARCUS REYES MD (PCP) Patient Instructions: Medical Screening Exam CADENCE CRESPO APRN Aug 05, 2019 21:30
== END 2019-08-05 21:47 | disposition home or self-care (01) ==
LOC: ER 18:26
DX: M25.511 Pain in right shoulder (principal); R60.1 Generalized edema; I10 Essential (primary) hypertension; E78.00 Pure hypercholesterolemia, unspecified; F17.200 Nicotine dependence, unspecified, uncomplicated; Z90.710 Acquired absence of both cervix and uterus
CPT/HCPCS: 99281